=== PATIENT | female | born 1965 | race Hispanic/Latino ===

== ENCOUNTER 2016-12-23 11:21 | Emergency (ER) | payer OTHER ==
[2016-12-23] MEDS ORDERED: Adacel (T-DAP) 0.5 ML VIAL ONE (11:40)
[2016-12-23] MEDS ORDERED: HYDROcodone/Acetaminophen 5/325 mg Tablet ONE (11:40)
[2016-12-23] MEDS ORDERED: Piperacillin/Tazobactam 3.375 GM VIAL ONE (12:31)
[2016-12-23] MEDS ORDERED: Sodium Chloride 0.9% 100 ML ONE (12:31)
[2016-12-23] MEDS ORDERED: Bacitracin Zinc 1 Packet ONE (12:47)
--- NOTE | 2016-12-23 19:12 | RAD ---
RIGHT HAND THREE VIEWS 12/23/16 No overt fracture was seen. A questionable line was seen running longitudinally in the middle phalan x of the third digit, however. it is best seen on one view only. I cannot confirm it as a fracture a t the moment. This should be correlated with the exact site of pain. If there is positive correlatio n, then followup films should be obtained. IMPRESSION: Equivocal longitudinal line in the middle phalanx of the third finger. This could be trabecular in n ature, but it should be compared with the site of pain. If positively correlated, followup to confir m fracture is suggested. POS: HOME
== END 2016-12-23 13:21 | disposition home or self-care (01) ==
LOC: BURERS 11:21 → EDBD 11:21 → BURERS 13:21
DX: S67.01XA Crushing injury of right thumb, initial encounter (principal); S61.431A Puncture wound without foreign body of right hand, initial encounter; W31.9XXA Contact with unspecified machinery, initial encounter
CPT/HCPCS: 90471; 90715; 96365; J2543; J7050